=== PATIENT | male | born 1995 | race Caucasian/White ===

== ENCOUNTER 2019-01-01 07:50 | Emergency (ER) | payer OTHER ==
[2019-01-01] MEDS: DEXAMETHASONE 10 MG/ML 1 ML INJ PO (08:31)
[2019-01-01] MEDS: ACETAMINOPHEN 500 MG TAB PO (08:31)
== END 2019-01-01 08:46 | disposition home or self-care (01) ==
LOC: FTE 07:50
DX: J02.9 Acute pharyngitis, unspecified (principal)
CPT/HCPCS: 99283; J1100